=== PATIENT | female | born 1940 | race Caucasian/White ===

== ENCOUNTER 2019-03-01 17:55 | Observation (INO) ==
[2019-03-01] MEDS ORDERED: NS 1,000 ML IV ONE (18:39)
--- NOTE | 2019-03-01 18:42 | PROVIDER DOCUMENTATION ---
HPI-Cardiac General - General Chief Complaint: Fall Stated Complaint: FALL Time Seen by Provider: 03/01/19 18:15 Source: patient Allergies/Adverse Reactions: Patient Allergies Allergy/AdvReac Type Severity Reaction Status Date / Time morphine AdvReac Intermediate AGITATED Verified 05/21/18 16:00 codeine [Codeine] AdvReac Mild NAUSEA Verified 05/21/18 16:00 Home Medications: Home Medication List Medication Instructions Recorded Confirmed Last Taken Type Cyanocobalamin/FA/Pyridoxine 1 each PO DAILY 01/24/13 03/01/19 03/01/19 History [Folic Acid 2.5 mg Tablet] Levothyroxine [Synthroid] 50 mcg PO QAM #30 tablet 04/30/13 03/01/19 05/21/18 Rx Valproic Acid 250 mg PO TID 02/19/15 03/01/19 03/01/19 History Glipizide 5 mg PO BID 05/21/18 03/01/19 03/01/19 History Duloxetine HCl 60 mg PO DAILY 03/01/19 03/01/19 03/01/19 History Fluticasone 50 Mcg Nasal [place] 1 spray INTRANASAL DAILY PRN 03/01/19 03/01/19 Unknown History [Flonase] Folic Acid 1 mg PO DAILY 03/01/19 03/01/19 03/01/19 History Hydrocodone/Acetaminophen 1 ea PO BID PRN PRN 03/01/19 03/01/19 03/01/19 History [Hydrocodone-Acetamin 7.5-325] Omeprazole 40 mg PO DAILY 03/01/19 03/01/19 03/01/19 History - History of Present Illness-Cardiac Nature of Presenting Problem: 78 yr old F, hx of epilepsy, HTN, presents after unwitnessed fall. The pt states that she was cleaning out her den earlier today, when she lost her balance and fell. She denies, LOC, denies any seizure like activity, she only notes that her balance went off, and she fell over, hitting her head on an unknown object. Other than pain from the head injury, she denies any chest pain. When the pt was transported by EMS, atrial fibrillation was noted on the monitor; subsequent EKG reverted back to sinus rhythm. She was asymptomatic at the moment of the atrial fibrillation occurring. She does report a hx of falls, where she feels like she loses balance and falls, without dizziness, without any pain, only noting a flutter in heart sometimes. Quality of Pain: reports: none Context/Activities at Onset: reports: moderate activity Review of Systems - Adult - REVIEW OF SYSTEMS - ADULT Constitutional: reports: no symptoms reported Eyes: reports: no symptoms reported Ears, Nose, Mouth & Throat: reports: no symptoms reported Cardiovascular: reports: no symptoms reported Respiratory: reports: no symptoms reported Gastrointestinal: reports: no symptoms reported Genitourinary: reports: no symptoms reported Musculoskeletal: reports: joint pain (hx of arthritis) Integumentary: reports: no symptoms reported Neurological: reports: no symptoms reported Past History - Adult - PAST MEDICAL HISTORY-ADULT Review of Records: reports: Nursing Assessment Review Major Childhood Illnesses: reports: denies history Cardiovascular: reports: denies history Respiratory: reports: denies history Gastrointestinal: reports: diverticulosis, other (colostomy) Obstetrical/Gynecological: reports: denies history Genitourinary: reports: denies history Musculoskeletal: reports: arthritis (RA), chronic pain Neurological: reports: denies history, Seizures/Epilepsy Psychiatric: reports: denies history Endocrine/Immune: reports: denies history, Diabetes, thyroid disorder Other Conditions: reports: denies history - PRIOR SURGERIES/PROCEDURES Surgical/Procedure History: reports: appendectomy, cholecystectomy, hysterectomy , bowel surgery (perforated colon), joint replacement, other (illeostomy) - IMMUNIZATION STATUS Childhood Immunizations: See Nurse Assessment Flu Vaccine: See Nurse Assessment - FAMILY HISTORY Family History: diabetes, HTN Physical Exam-General - PHYSICAL EXAM-ADULT Initial Vital Signs Reviewed: Yes - CONSTITUTIONAL General Appearance: alert, no apparent distress - EYES Eyes: PERRL/EOMI - HEAD, EARS, NOSE, MOUTH & THROAT HENMT: other (scalp hematoma, hemostatic, superficial laceration) - RESPIRATORY Respiratory: lungs clear, normal breath sounds - CARDIOVASCULAR Cardiovascular: regular rate, rhythm - GASTROINTESTINAL (ABDOMEN) Abdominal Exam: normal bowel sounds, non tender, soft - SKIN Integumentary: warm/dry - PSYCHIATRIC Psych/Mental Status: normal mood/affect, oriented x 3 - HEART Score HEART Score: History: Slightly Suspicious HEART Score: ECG: Normal HEART Score: Age: > or = 65 Years HEART Score: Risk Factors for Atherosclerotic Disease: 1 or 2 Risk Factors HEART Score: Troponin: < or = Normal Limit Total HEART Score:: 3 Progress - PLAN OF CARE/RESULTS Progress/Plan/Lab Results: Vital Signs - 8 hr 03/01/19 18:20 03/01/19 19:37 03/01/19 20:03 Temperature 97.7 F Pulse Rate 91 H 88 92 H Respiratory Rate 20 17 19 Blood Pressure 126/81 128/86 108/86 O2 Sat by Pulse Oximetry 96 92 L 94 L 03/01/19 20:33 03/01/19 20:41 03/01/19 21:08 Temperature Pulse Rate 88 Respiratory Rate 23 Blood Pressure 116/70 116/70 133/72 O2 Sat by Pulse Oximetry 98 03/01/19 21:34 03/01/19 22:04 03/01/19 22:33 Temperature Pulse Rate 83 85 76 Respiratory Rate 17 20 17 Blood Pressure 110/59 117/67 122/78 O2 Sat by Pulse Oximetry 95 96 03/01/19 23:03 Temperature Pulse Rate 81 Respiratory Rate 24 Blood Pressure 110/61 O2 Sat by Pulse Oximetry 96 Laboratory Results - last 24 hr 03/01/19 03/01/19 03/01/19 18:27 18:27 18:27 WBC 6.97 RBC 4.41 Hgb 14.4 Hct 43.5 MCV 98.6 MCH 32.7 H MCHC 33.1 RDW Std Deviation 12.6 Plt Count 225 MPV 10.8 H Immature Gran % (Auto) 0.0 Neut % (Auto) 45.3 Lymph % (Auto) 41.0 [place] % (Auto) 12.3 H Eos % (Auto) 1.1 Baso % (Auto) 0.3 Immature Gran # (Auto) 0.00 Neut # (Auto) 3.15 Lymph # (Auto) 2.86 [place] # (Auto) 0.86 H Eos # (Auto) 0.08 Baso # (Auto) 0.02 PT 13.6 INR 1.03 PTT (Actin FS) 27.9 Sodium 134 L Potassium 5.6 H Chloride 101 Carbon Dioxide 19 L Anion Gap 14 BUN 31 H Creatinine 1.1 H Estimated GFR/1.73 m2 48 BUN/Creatinine Ratio 28 Glucose 101 Calculated Osmolality 275 Calcium 9.9 Total Bilirubin 0.45 AST 16 ALT 18 Alkaline Phosphatase 48 Troponin T Total Protein 7.5 Albumin 4.8 Globulin 2.7 Albumin/Globulin Ratio 1.8 Urine Source Urine Color Urine Turbidity Urine pH Ur Specific [place] Urine Protein Ur Glucose (Stick) Ur Ketones (Stick) Urine Blood Urine Nitrite Urine Bilirubin Urobilinogen Dipstick Urine Leukocytes Urine WBC (Auto) Urine RBC (Auto) U Epithel Cells (Auto) Urine Bacteria (Auto) 03/01/19 03/01/19 18:27 19:38 WBC RBC Hgb Hct MCV MCH MCHC RDW Std Deviation Plt Count MPV Immature Gran % (Auto) Neut % (Auto) Lymph % (Auto) [place] % (Auto) Eos % (Auto) Baso % (Auto) Immature Gran # (Auto) Neut # (Auto) Lymph # (Auto) [place] # (Auto) Eos # (Auto) Baso # (Auto) PT INR PTT (Actin FS) Sodium Potassium Chloride Carbon Dioxide Anion Gap BUN Creatinine Estimated GFR/1.73 m2 BUN/Creatinine Ratio Glucose Calculated Osmolality Calcium Total Bilirubin AST ALT Alkaline Phosphatase Troponin T < 0.010 Total Protein Albumin Globulin Albumin/Globulin Ratio Urine Source CLEAN CATCH Urine Color YELLOW Urine Turbidity HAZY Urine pH 5.5 Ur Specific [place] 1.022 Urine Protein 30 A Ur Glucose (Stick) NEGATIVE Ur Ketones (Stick) TRACE A Urine Blood SMALL A Urine Nitrite NEGATIVE Urine Bilirubin NEGATIVE Urobilinogen Dipstick NORMAL Urine Leukocytes LARGE A Urine WBC (Auto) TNTC A Urine RBC (Auto) 10-20 A U Epithel Cells (Auto) <10 Urine Bacteria (Auto) NEGATIVE Orders Category Date Time Status Admit - [facility] Routine AdmDCTranf 03/01/19 22:47 Active Activity - Up with Assistance ORDERED Care 03/01/19 22:47 Active Apply Mechanical Device [QM] ORDERED Care 03/01/19 22:47 Active FSBS/Accucheck Result AC + HS Care 03/01/19 22:47 Active Intake and Output-Strict ORDERED Care 03/01/19 22:47 Active Misc. NRSG Communication Order DIRECTED Care 03/01/19 21:43 Active Update & Confirm Home Medicati ROUTINE Care 03/01/19 22:27 Active Vital Signs Order Q 8-HR ASSESS Care 03/01/19 22:47 Active Z-Document. for Tele Applied ORDERED Care 03/01/19 22:47 Active Regular Diet Diet 03/01/19 22:[address] HEAD W/O CONTRAST [CT] Stat Exams 03/01/19 18:39 Completed BASIC METABOLIC PANEL [CHEM] Routine Lab 03/02/19 06:00 Ordered CBC WITH DIFF [HEME] Routine Lab 03/02/19 06:00 Ordered CBC WITH ELECTRONIC DIFF [HEME] Stat Lab 03/01/19 18:27 Completed COMPREHENSIVE METABOLIC PANEL [CHEM] Stat Lab 03/01/19 18:27 Completed MAGNESIUM [CHEM] Routine Lab 03/02/19 06:00 Ordered PROTIME WITH INR [COAG] Stat Lab 03/01/19 18:27 Completed PTT [COAG] Stat Lab 03/01/19 18:27 Completed TROPONIN T Stat Lab 03/01/19 18:27 Completed TSH Routine Lab 03/02/19 06:00 Ordered URINALYSIS W/POSS RFLX CULT [URINALYSIS] Stat Lab 03/01/19 19:38 Completed URINE CULTURE [RM] Routine Lab 03/01/19 20:06 Received 0.9% Sodium Chloride Inj [Ns] 1,000 ml Med 03/01/19 22:47 Active IV 60 mls/hr 0.9% Sodium Chloride Inj [Ns] 1,000 ml Med 03/01/19 18:39 Discontinued IV 999 mls/hr CefTRIAXONE [Rocephin] 1 gm Med 03/01/19 22:47 Active 0.9% Sodium Chloride Inj [Ns] 50 ml IV Q24H Insulin Lispro [Humalog] Med 03/02/19 07:00 Active See Protocol SUBQ 0700,1100,1600,2100 Ondansetron [Zofran] Med 03/01/19 22:47 Active 4 mg IV Q4H PRN PRN Promethazine [Phenergan] Med 03/01/19 22:47 Active 25 mg PO Q6H PRN PRN Sodium Polystyrene [Kayexalate] Med 03/01/19 20:24 Discontinued 15 gm PO NOW ONE Valproic Acid [Depakene Liquid] Med 03/01/19 21:34 Discontinued 250 mg PO NOW ONE Telemetry [OM.EQ] Routine Oth 03/01/19 22:47 Active EKG [EKG] Routine Ther 03/02/19 08:00 Ordered Echo Spec/Color Doppler Routine Ther 03/02/19 08:00 Ordered Physical Therapy Eval/Treatment [OM.PT] Routine Ther 03/01/19 22:47 Active Transfer/Admit Order [TRANSFER] Routine Transfer 03/01/19 22:28 Completed Pt has had some runs of tachycardia, but no noted atrial fibrillation on the monitor; remains asymptomatic. Spoke with hospitalist for admission. Result Diagrams: 03/01/19 18:27 03/01/19 18:27 - EKG 1 Time of EKG reading by physician:: 18:14 EKG Read and Signed by:: Jairo Anna EKG Interpretation (*Must complete 3 of following elements*): Abnormal Rate: 94 Rhythm: sinus QRS: LVH VT Interval: normal ST Wave: normal - CT/MRI 1 CT Study: Head Impression: See EMR Report CT Results: chronic changes - CONSULTS/PCP/HOSPITALIST Notification #1 *Consult/PCP/Hospitalist*: Dr. Garcia Time Discussed: 20:30 Consult Disposition: Admit Departure - Departure Date of Disposition Decision: 03/01/19 Time of Disposition Decision: 22:12 DIAGNOSIS: Fall Disposition: ADMITTED INPATIENT 09 Certified Medical Emergency: Emergent Condition: Stable - Critical Care Note This patient required my direct & personal management of CC.: No Attestation - Physician/ SHAGGY Attestation Patient care was provided by Advanced Practice Provider:: No The physician spent face to face time with patient:: Yes Advanced Practice Provider documentation review:: Supervising physician onsite and consulted in the evaluation and care of this patient. The physician did have a face to face encounter with the patient.
[2019-03-01 19:22] LABS: BASO# 0.02 X1000 (0.0-0.2); BASO% 0.3 % (0.0-0.8); EOS# 0.08 X1000 (0.0-0.7); EOS% 1.1 % (0.0-10.0); HEMATOCRIT 43.5 % (37.0-47.0); HEMOGLOBIN 14.4 g/dL (12.0-16.0); LYMPH# 2.86 X1000 (1.2-3.4); MCH 32.7 PG (27-31); MCHC 33.1 g/dL (33-37); MCV 98.6 FL (81-99); MONO# 0.86 X1000 (0.11-0.59); MONO% 12.3 % (1.7-9.3); MPV 10.8 FL (7.4-10.4); NEUT# 3.15 X1000 (1.4-6.5); NEUT% 45.3 % (42.2-75.2); PLT 225 X1000 (130-400); RBC 4.41 XMIL (4.2-5.4); RDW 12.6 % (11.5-14.5); WBC 6.97 X1000 (4.8-10.8)
[2019-03-01 19:29] LABS: INR 1.03; PROTIME 13.6 Seconds (11.0-16.0)
[2019-03-01 19:30] LABS: PTT 27.9 Seconds (22.3-41.8)
[2019-03-01 19:45] LABS: URINE SOURCE CLEAN CATCH
[2019-03-01 19:48] LABS: BILIRUBIN URINE NEGATIVE (NEGATIVE); BLOOD URINE SMALL (NEGATIVE); COLOR YELLOW; GLUCOSE URINE NEGATIVE (NEGATIVE); KETONE URINE TRACE mg/dL (NEGATIVE); LEUKOCYTES URINE LARGE (NEGATIVE); NITRITE URINE NEGATIVE (NEGATIVE); PH URINE 5.5; PROTEIN URINE 30 mg/dL (NEGATIVE); SP GRAVITY URINE 1.022; TURBIDITY URINE HAZY (CLEAR); UR EPITHELIAL CELLS <10 /HPF (<10); URINE BACTERIA NEGATIVE /HPF; URINE WBC TNTC /HPF (<10); UROBILINOGEN URINE NORMAL (NORMAL)
[2019-03-01 19:53] LABS: ALB/GLOB RATIO 1.8; ALBUMIN 4.8 g/dL (3.5-5.0); CALCIUM 9.9 mg/dL (8.8-10.2); CREATININE 1.1 mg/dL (0.5-0.9); POTASSIUM 5.6 mmol/L (3.5-5.1); TOTAL BILIRUBIN 0.45 mg/dL (0.20-1.00); TOTAL PROTEIN 7.5 g/dL (6.3-8.3)
[2019-03-01] MEDS ORDERED: KAYEXALATE PO ONE (20:24)
--- NOTE | 2019-03-01 21:22 | Diag Imaging Result Doc PS360 ---
EXAM: CT HEAD W/O CONTRAST INDICATION: fall TECHNIQUE: This exam was performed using automated exposure control, adjustment of mA or kV according to patient size, and/or use of iterative reconstruction technique. COMPARISON: 05/21/2017 FINDINGS: There is stable ventriculomegaly. No periventricular edema is appreciated. There is no definite acute infarct given the limited sensitivity of CT versus MRI. There is no discrete intracranial mass, mass effect, or intracranial hemorrhage. There is a subgaleal scalp hematoma and laceration posteriorly mainly to the right of midline toward the vertex of the skull. The calvaria is intact. IMPRESSION: 1.Stable chronic ventriculomegaly but no evidence of acute intracranial pathology. 2.Scalp hematoma as described. Electronically signed by Manuel Baca 03/01/2019 9:19 PM
[2019-03-01] MEDS ORDERED: DEPAKENE LIQUID PO ONE (21:34)
[2019-03-01] MEDS ORDERED: PHENERGAN PO PRN (22:47)
[2019-03-01] MEDS ORDERED: ROCEPHIN 1 GM in NS 50 ML IV SCH (22:47)
[2019-03-01] MEDS ORDERED: NS 1,000 ML IV SCH (22:47)
[2019-03-01] MEDS ORDERED: ZOFRAN IV PRN (22:47)
[2019-03-02] MEDS ORDERED: NORCO-7.5 PO PRN (01:19)
[2019-03-02 06:25] LABS: BASO# 0.02 X1000 (0.0-0.2); BASO% 0.3 % (0.0-0.8); EOS# 0.09 X1000 (0.0-0.7); EOS% 1.4 % (0.0-10.0); HEMATOCRIT 39.8 % (37.0-47.0); HEMOGLOBIN 13.1 g/dL (12.0-16.0); LYMPH# 2.42 X1000 (1.2-3.4); LYMPH% 37.6 % (20.5-51.1); MCH 32.4 PG (27-31); MCHC 32.9 g/dL (33-37); MCV 98.5 FL (81-99); MONO# 0.74 X1000 (0.11-0.59); MONO% 11.5 % (1.7-9.3); MPV 10.3 FL (7.4-10.4); NEUT# 3.16 X1000 (1.4-6.5); NEUT% 49.2 % (42.2-75.2); PLT 214 X1000 (130-400); RBC 4.04 XMIL (4.2-5.4); RDW 12.5 % (11.5-14.5); WBC 6.43 X1000 (4.8-10.8)
[2019-03-02] MEDS ORDERED: SYNTHROID PO SCH (07:00)
[2019-03-02 07:02] LABS: AGAP 10; BUN 25 mg/dL (8-22); CALCIUM 8.4 mg/dL (8.8-10.2); CHLORIDE 106 mmol/L (98-107); COSMO 276; CREATININE 0.8 mg/dL (0.5-0.9); ESTIMATED GFR > 60; GLUCOSE 93 mg/dL (70-104); MAGNESIUM 1.9 mg/dL (1.5-2.7); POTASSIUM 4.6 mmol/L (3.5-5.1); SODIUM 136 mmol/L (136-145); TCO2 20 mmol/L (25-35)
[2019-03-02] MEDS: HUMALOG SUBQ SCH ×2 (07:34→11:41)
--- NOTE | 2019-03-02 08:00 | HISTORY AND PHYSICAL ---
CHIEF COMPLAINT: Fall. HISTORY OF PRESENT ILLNESS: Ms. Ramey is a 78-year-old female with a past medical history of epilepsy, hypertension, intraabdominal abscess with colon resection and colostomy as well as hypothyroidism and seizure disorder. She comes in after having a fall at home. The fall was unwitnessed. The patient states she was clearing out her den earlier today. She lost her balance. Denies loss of consciousness or any type of seizure activity. She did hit her head on a known object and has a scalp hematoma with a superficial laceration. Apparently in the ambulance when they hooked her up, they thought they say an atrial flutter. She had some runs of tachycardia, but there was no atrial fibrillation in the emergency room. She will be admitted for observation overnight. PAST MEDICAL HISTORY: See HPI. PAST SURGICAL HISTORY: 1. Cholecystectomy. 2. Appendectomy. 3. Hysterectomy. 4. Bilateral knee replacement. 5. Back surgery. 6. Breast surgery. 7. Colon resection with ostomy placement. SOCIAL HISTORY: Lives with family. No tobacco, alcohol or illicit drugs. FAMILY HISTORY: Denies any early cardia . Otherwise reviewed and not pertinent to this admission. HOME MEDICATIONS: Folic acid 1 mg tablet 1 p.o. daily, Flonase daily, glipizide 5 mg p.o. b.i.d., duloxetine 60 mg daily, [place] 7.5 one p.o. b.i.d., levothyroxine 50 mcg p.o. daily, omeprazole 40 mg p.o. daily, valproic acid 250 mg p.o. t.i.d. REVIEW OF SYSTEMS: A 14-point review of systems was conducted with the patient, and pertinent positives are listed above in the HPI. All other systems reviewed and found to be negative. PHYSICAL EXAMINATION: VITAL SIGNS: Temperature 97.7, pulse 91, respirations 20, blood pressure 146/81, oxygen saturation 96% on room air. GENERAL: A pleasant 78-year-old female lying on the ER stretcher, alert and oriented x3, answers all questions appropriately, is in no acute distress. HEENT: Head is normocephalic. Hematoma noted to scalp with superficial laceration. Pupils are equal, round and reactive to light. Extraocular eye movements intact. Sclerae anicteric. Conjunctivae are pink. Oral mucosa is moist. NECK: Supple. No JVD. No thyromegaly. Trachea is midline. No cervical lymphadenopathy. CARDIAC: S1 and S2 appreciated. Mildly tachycardic. No murmurs, gallops or rubs. LUNGS: Clear to auscultation bilaterally. No rhonchi, wheezes or rales. Symmetric rise and fall with respirations. ABDOMEN: Soft, nondistended and nontender. Bowel sounds present in all 4 quadrants and normoactive. No pulsatile mass. No organomegaly. EXTREMITIES: No cyanosis, clubbing or edema. NEUROLOGICAL: Alert and oriented x3. Cranial nerves II through XII grossly intact. DIAGNOSTIC DATA: WBC is 6.97, hemoglobin 14.4, hematocrit 43.5, platelet count 225. INR is 1.03. Sodium is 134, potassium 5.6, chloride 101, carbon dioxide 19, BUN is 31, creatinine 1.1, glucose 101. Valproic acid is 80. Urine is leukocyte esterase positive with too numerous to count WBCs. ASSESSMENT: 1. Urinary tract infection. 2. Falls. 3. Hypochloremia. 4. Chronic renal insufficiency. 5. Hypothyroidism. PLAN: Place the patient in the hospital on observation status. Rocephin 1 g q.24 hours for urinary tract infection. Check a TSH level. Continue Synthroid. Her valproic acid level is within normal limits. Continue valproic acid for her chronic epilepsy. The patient was given her Kayexalate. We will recheck potassium level. Further recommendations based on the patient's clinical course. Dictated by CARLITO Martinez for Martin Garcia MD I have performed a face to face diagnostic evaluation. Labs/ Xrays- reviewed. Exam- Chest- clear, CV- regular, A/P- UTI, Falls- Admit, Chest urine culture,IV ABX. Fall precautions. Dr. Garcia cc: CARLITO Martinez MD [facility]
[2019-03-02 08:15] LABS: HEMOGLOBIN A1C 5.7 % (4.8-6.0)
--- NOTE | 2019-03-02 08:46 | EKG Report ---
Test Performed on : 03/02/2019 06:10:44 AM Test Reason : chest pain Blood Pressure : / mmHG Vent. Rate : 069 BPM Atrial Rate : 069 BPM P-R Int : 158 ms QRS Dur : 070 ms QT Int : 364 ms P-R-T Axes : 000 -19 027 degrees QTc Int : 390 ms Normal sinus rhythm. Minimal voltage criteria for LVH, may be normal variant Borderline ECG When compared with ECG of 01-MAR-2019 18:13, (Unconfirmed) No significant change was found Confirmed by Gaston CHAMPAGNE, Moustapha Spear ([id number]) on 03/02/2019 9:42:49 PM
[2019-03-02] MEDS ORDERED: FOLIC ACID PO SCH (09:00)
[2019-03-02] MEDS ORDERED: CYMBALTA PO SCH (09:00)
[2019-03-02] MEDS ORDERED: DEPAKENE LIQUID PO SCH (09:00)
[2019-03-02] MEDS ORDERED: PRILOSEC PO SCH (09:00)
[2019-03-02 11:50] VITALS: BP 102/61
[2019-03-02] MEDS ORDERED: FLU VACCINE IM ONE (11:53)
[2019-03-02] MEDS ORDERED: PNEUMOVAX 23 IM ONE (11:53)
--- NOTE | 2019-03-02 16:27 | DISCHARGE SUMMARY ---
ADMISSION DATE: 03/01/2019 DISCHARGE DATE: 03/02/2019 PERTINENT STUDIES: CT head with stable chronic ventriculomegaly and scalp hematoma without intracranial acute process. CBC unremarkable. Initial chemistry with sodium 134, potassium 5.6, BUN 31, creatinine 1.1. LFTs within normal limits. Troponin negative. TSH within normal limits. Repeat chemistry with potassium 4.6, BUN 25, creatinine 0.8. DISCHARGE DIAGNOSES: 1. Fall. 2. Seizure disorder. 3. Asymptomatic bacteriuria. 4. Likely acute kidney injury. 5. Hyperkalemia. 6. Hyponatremia . 7. Diabetes mellitus. 8. Hypothyroidism. 9. Likely diabetic peripheral neuropathy. HOSPITAL COURSE: Patient presented initially after fall. States she was in her bathroom and lost her balance. She did hurt her head but denied any loss of consciousness. The patient stated that she recalled the entire fall without any missing pieces to suggest a loss of consciousness. She denied dizziness, vertigo, nausea, vomiting, cough, dyspnea, dysuria. When EMS arrived she was tachycardic and EMS thought that she may have had atrial flutter. After arrival to the hospital patient was in sinus tach but no arrhythmia was found. She had a small laceration on her head which was bandaged. The patient was noted to have hyperkalemia with mildly elevated creatinine 1.1, potassium 5.6. This combined with the possible atrial flutter seen by EMS prompted admission for observation. Her urinalysis was somewhat suggestive of UTI but patient denied any urinary symptoms. She did not have any fever or white count so this was favored be asymptomatic bacteriuria. She was monitored overnight with no events on telemetry. She was given IV hydration, which improved her hyperkalemia and creatinine. But suggested the patient she try to stay hydrated. The patient was again questioned and denied anything sounds like presyncope or vertigo. Did seem to have a little bit of peripheral neuropathy on exam, possibly diabetic, which may be contributing to her occasionally being off balance but no focal neurologic deficits were identified to suggest stroke. After initial IV fluids patient's vitals were all within normal limits. She was discharged home to follow up with her PCP. She had no symptoms that sounded like seizures and her valproic acid level was within expected limit. Urine culture was no growth. DISCHARGE DIET: Diabetic. DISCHARGE MEDICATIONS: Duloxetine 60 mg p.o. daily, Flonase as needed, folic acid daily, glipizide 5 mg p.o. b.i.d., [place] as previously prescribed, omeprazole 40 mg p.o. daily, valproic acid 250 mg p.o. t.i.d., Synthroid 50 mcg p.o. daily. FOLLOWUP AND PLAN: Patient with fall with small head lac but no serious injury. No loss of consciousness. No cardiac events noted on telemetry or EKG after arrival. Patient to follow up with PCP. Discussed with patient that if she has further events that may be more suggestive of cardiac issue then may need outpatient Holter for cardiac monitoring.
--- NOTE | 2019-03-03 08:02 | EKG Report ---
Test Performed on : 03/01/2019 6:13:04 PM Test Reason : IRREGULAR HEART RATE Blood Pressure : / mmHG Vent. Rate : 094 BPM Atrial Rate : 094 BPM P-R Int : 152 ms QRS Dur : 072 ms QT Int : 324 ms P-R-T Axes : 057 -22 021 degrees QTc Int : 405 ms Normal sinus rhythm. Moderate voltage criteria for LVH, may be normal variant Borderline ECG When compared with ECG of 01-MAY-2013 16:26, fusion complexes are no longer present ST no longer depressed in Lateral leads Unconfirmed Result
== END 2019-03-02 12:37 | disposition home or self-care (01) ==
LOC: SUPCPDRO → 3N 17:55 → ED 17:55 → SUATTDRO 23:21
PROVIDERS: ATTEND Internal Medicine

== ENCOUNTER 2019-05-01 08:50 | Inpatient (IN) ==
[2019-05-01] MEDS ORDERED: VERSED INJ ONE (09:05)
[2019-05-01] MEDS ORDERED: KEPPRA 1,500 MG in NS 100 ML IV ONE (09:09)
[2019-05-01] MEDS ORDERED: VERSED ONE (09:09)
[2019-05-01] MEDS ORDERED: NS 1,000 ML IV ONE (09:09)
[2019-05-01] MEDS ORDERED: ATIVAN IV ONE ×2 (09:37→11:24)
[2019-05-01 10:11] LABS: BASO# 0.02 X1000 (0.0-0.2); BASO% 0.2 % (0.0-0.8); EOS# 0.03 X1000 (0.0-0.7); EOS% 0.4 % (0.0-10.0); HEMOGLOBIN 13.1 g/dL (12.0-16.0); IMM GRAN# 0.03 X1000 (0.0-0.04); IMM GRAN% 0.4 % (0.0-0.5); LYMPH# 3.29 X1000 (1.2-3.4); LYMPH% 39.9 % (20.5-51.1); MCH 32.8 PG (27-31); MCHC 32.8 g/dL (33-37); MCV 100.3 FL (81-99); MONO% 9.7 % (1.7-9.3); MPV 10.7 FL (7.4-10.4); NEUT# 4.07 X1000 (1.4-6.5); NEUT% 49.4 % (42.2-75.2); PLT 215 X1000 (130-400); RBC 3.99 XMIL (4.2-5.4); RDW 13.3 % (11.5-14.5); WBC 8.24 X1000 (4.8-10.8)
[2019-05-01 10:18] LABS: URINE SOURCE CATH
[2019-05-01 10:20] LABS: BILIRUBIN URINE NEGATIVE (NEGATIVE); BLOOD URINE TRACE (NEGATIVE); COLOR YELLOW; GLUCOSE URINE TRACE mg/dL (NEGATIVE); KETONE URINE TRACE mg/dL (NEGATIVE); LEUKOCYTES URINE NEGATIVE (NEGATIVE); NITRITE URINE NEGATIVE (NEGATIVE); PH URINE 5.5; PROTEIN URINE TRACE mg/dL (NEGATIVE); SP GRAVITY URINE 1.022; TURBIDITY URINE CLEAR (CLEAR); UR EPITHELIAL CELLS <10 /HPF (<10); URINE BACTERIA NEGATIVE /HPF; URINE RBC <10 /HPF (<10); URINE WBC <10 /HPF (<10); UROBILINOGEN URINE NORMAL (NORMAL)
[2019-05-01] MEDS ORDERED: HALDOL IV ONE ×3 (10:20→13:47)
[2019-05-01] MEDS ORDERED: BENADRYL IV ONE ×2 (10:20→13:40)
[2019-05-01 10:21] LABS: ALB/GLOB RATIO 1.8; ALBUMIN 4.3 g/dL (3.5-5.0); CALCIUM 9.7 mg/dL (8.8-10.2); MAGNESIUM 1.9 mg/dL (1.5-2.7); TOTAL BILIRUBIN 0.36 mg/dL (0.20-1.00); TOTAL PROTEIN 6.7 g/dL (6.3-8.3)
[2019-05-01 10:23] LABS: INR 1.03; PROTIME 13.6 Seconds (11.0-16.0)
--- NOTE | 2019-05-01 12:25 | Diag Imaging Result Doc PS360 ---
EXAM: CHEST-PORTABLE HISTORY: seizure TECHNIQUE: Single view COMPARISON: 10/11/2017 FINDINGS: Poor inspiratory effort. No cardiomegaly. Right hemidiaphragm is elevated. Pleural effusions identified. No consolidation. IMPRESSION: Negative exam Electronically signed by Walter Byrne 05/01/2019 12:23 PM
[2019-05-01 13:00] LABS: UR AMPHETAMINES QUAL NONE DETECTED (NONE DETECT); UR BARBITUATES QUAL NONE DETECTED (NONE DETECT); UR BENZODIAZEPIN QUAL PRESUMPTIVE POSITIVE (NONE DETECT); UR CANNABINOIDS QUAL NONE DETECTED (NONE DETECT); UR COCAINE QUAL NONE DETECTED (NONE DETECT); UR METHADONE QUAL NONE DETECTED (NONE DETECT); UR OPIATES QUAL NONE DETECTED (NONE DETECT); UR OXYCODONE QUAL NONE DETECTED (NONE DETECT); UR PCP QUAL NONE DETECTED (NONE DETECT)
[2019-05-01] MEDS ORDERED: DEPACON 500 MG in NS 50 ML IV ONE (13:41)
--- NOTE | 2019-05-01 15:45 | Diag Imaging Result Doc PS360 ---
EXAM: CT HEAD W/O CONTRAST INDICATION: seizure TECHNIQUE: This exam was performed using automated exposure control, adjustment of mA or kV according to patient size, and/or use of iterative reconstruction technique. COMPARISON: 03/01/2019 FINDINGS: There is stable chronic ventriculomegaly. There is no definite acute infarct given the limited sensitivity of CT versus MRI. There is no discrete intracranial mass, mass effect, or intracranial hemorrhage. The surrounding soft tissues and bony structures are essentially unremarkable. IMPRESSION: Stable chronic ventriculomegaly. No evidence of acute intracranial pathology by CT. Electronically signed by Manuel Baca 05/01/2019 3:42 PM
--- NOTE | 2019-05-01 15:53 | PROVIDER DOCUMENTATION ---
This chart was entered by Fanny Madison Scribe, acting as scribe for Sylvester Roper MD. HPI-Neurological Disorder - General Chief Complaint: Seizure Stated Complaint: SEIZURE Time Seen by Provider: 05/01/19 09:02 Source: family, EMS Allergies/Adverse Reactions: Patient Allergies Allergy/AdvReac Type Severity Reaction Status Date / Time morphine AdvReac Intermediate AGITATED Verified 05/01/19 11:36 codeine [Codeine] AdvReac Mild NAUSEA Verified 05/01/19 11:36 Home Medications: Home Medication List Medication Instructions Recorded Confirmed Last Taken Type Cyanocobalamin/FA/Pyridoxine 1 each PO DAILY 01/24/13 03/01/19 03/01/19 History [Folic Acid 2.5 mg Tablet] Levothyroxine [Synthroid] 50 mcg PO QAM #30 tablet 04/30/13 03/01/19 05/21/18 Rx Valproic Acid 250 mg PO TID 02/19/15 03/01/19 03/01/19 History Glipizide 5 mg PO BID 05/21/18 03/01/19 03/01/19 History Duloxetine HCl 60 mg PO DAILY 03/01/19 03/01/19 03/01/19 History Fluticasone 50 Mcg Nasal [place] 1 spray INTRANASAL DAILY PRN 03/01/19 03/01/19 Unknown History [Flonase] Folic Acid 1 mg PO DAILY 03/01/19 03/01/19 03/01/19 History Hydrocodone/Acetaminophen 1 ea PO BID PRN PRN 03/01/19 03/01/19 03/01/19 History [Hydrocodone-Acetamin 7.5-325] Omeprazole 40 mg PO DAILY 03/01/19 03/01/19 03/01/19 History - History of Present Illness-Neuro Nature of Presenting Problem: Patient is a 78 year old female who presents to the ED via EMS with seizure activity. Family states patient had a seizure this morning that lasted about 5 minutes. Report patient takes Depakote. Family states patient reported not feeli ng well last night and she sat in a recliner in front of a tv all night. EMS states patient had another seizure in route that lasted about 1 minute. EMS reports patient is combative postictal. Severity: reports: mild Onset/Duration: reports: this morning Timing: reports: intermittent Context: reports: seizure activity Character of Altered Mental Status: reports: seizure activity Similar Symptoms Previously?: No Recently seen or treated by another doctor?: No - Seizure First time to have a seizure?: No Witnessed seizure?: Yes How many seizure episodes?: 2 Character of Seizure: reports: generalized shaking all over Post-ictal Symptoms: reports: other (combative) Review of Systems - Adult - REVIEW OF SYSTEMS - ADULT ROS:: ROS per family Constitutional: reports: no symptoms reported Eyes: reports: no symptoms reported Ears, Nose, Mouth & Throat: reports: no symptoms reported Cardiovascular: reports: no symptoms reported Respiratory: reports: no symptoms reported Gastrointestinal: reports: no symptoms reported Genitourinary: reports: no symptoms reported Musculoskeletal: reports: no symptoms reported Integumentary: reports: no symptoms reported Neurological: reports: see HPI, seizure. denies: dizziness/vertigo, headache/migraines Psychiatric: reports: no symptoms reported Endocrine: reports: no symptoms reported Hematologic/Lymphatic: reports: no symptoms reported Allergic/Immunologic: reports: no symptoms reported All Other Systems: Reviewed and Negative Past History - Adult - PAST MEDICAL HISTORY-ADULT Review of Records: reports: Old Records Reviewed, Nursing Assessment Review, Medications Reviewed, Social history reviewed & non-contributory. Major Childhood Illnesses: reports: denies history Cardiovascular: reports: denies history Respiratory: reports: denies history Gastrointestinal: reports: diverticulosis, other (colostomy) Obstetrical/Gynecological: reports: denies history Genitourinary: reports: denies history Musculoskeletal: reports: arthritis (RA), chronic pain Neurological: reports: Seizures/Epilepsy Psychiatric: reports: anxiety Endocrine/Immune: reports: Diabetes, thyroid disorder Other Conditions: reports: denies history - PRIOR SURGERIES/PROCEDURES Surgical/Procedure History: reports: appendectomy, cholecystectomy, hysterectomy , bowel surgery (perforated colon), joint replacement, other (illeostomy) - IMMUNIZATION STATUS Childhood Immunizations: See Nurse Assessment Flu Vaccine: See Nurse Assessment - FAMILY HISTORY Family History: diabetes, HTN - SOCIAL HISTORY Smoking: cigarettes, less than 1 pack/day Provider spent 3-5 mins advising pt. on dangers of tobacco.: Discussed manners to quit use, and f/u contacts for add'l counseling. Substance Use: denies Living Situation: family Physical Exam- Neurological - Physical Exam-Neuro Initial Vital Signs Reviewed: Yes General Appearance: alert, combative, other (mumbling and occasionally answers to name). negative: obtunded HENMT: normocephalic/atraumatic. negative: angioedema Head Injury: no evidence of injury. negative: active bleeding, lacerations Respiratory: chest non-tender, increased rate. negative: respiratory distress, wheezing Cardiovascular: tachycardia. negative: regular rate, rhythm, systolic murmur Extremity: non-tender, other (3 + pitting edema to bilateral lower extremities.) . negative: deformity Neurologic: other (unable to assess per patient's condition) Integumentary: normal color, normal turgor, warm/dry. negative: pallor Progress - PLAN OF CARE/RESULTS Progress/Plan/Lab Results: Vital Signs - 8 hr 05/01/19 08:58 05/01/19 09:00 05/01/19 09:01 Temperature 97.6 F Pulse Rate 110 H 107 H 112 H Respiratory Rate 18 24 Blood Pressure 127/75 127/75 O2 Sat by Pulse Oximetry 97 68 L 96 05/01/19 09:15 05/01/19 09:30 05/01/19 09:32 Temperature Pulse Rate 106 H 144 H 100 H Respiratory Rate 22 31 H 22 Blood Pressure 90/58 O2 Sat by Pulse Oximetry 96 100 05/01/19 09:45 05/01/19 10:00 05/01/19 10:15 Temperature Pulse Rate 54 L 106 H 89 Respiratory Rate 25 H 18 18 Blood Pressure O2 Sat by Pulse Oximetry 94 L 93 L 92 L 05/01/19 10:30 05/01/19 10:34 05/01/19 10:45 Temperature Pulse Rate 105 H 113 H 117 H Respiratory Rate 20 24 23 Blood Pressure 99/78 O2 Sat by Pulse Oximetry 72 L 100 97 05/01/19 11:00 05/01/19 11:15 05/01/19 11:25 Temperature Pulse Rate 120 H Respiratory Rate 17 16 Blood Pressure 97/72 O2 Sat by Pulse Oximetry 91 L 97 95 05/01/19 11:30 05/01/19 11:34 05/01/19 11:36 Temperature Pulse Rate 112 H 114 H 121 H Respiratory Rate 22 18 Blood Pressure 82/72 141/75 O2 Sat by Pulse Oximetry 100 95 100 05/01/19 11:45 05/01/19 12:00 05/01/19 12:02 Temperature Pulse Rate 109 H 131 H 119 H Respiratory Rate 29 H 14 20 Blood Pressure 91/71 O2 Sat by Pulse Oximetry 99 91 L 92 L 05/01/19 12:15 05/01/19 12:30 Temperature Pulse Rate 119 H Respiratory Rate 15 Blood Pressure O2 Sat by Pulse Oximetry 86 L 97 Laboratory Results - last 24 hr 05/01/19 05/01/19 05/01/19 09:08 09:40 09:40 WBC 8.24 RBC 3.99 L Hgb 13.1 Hct 40.0 MCV 100.3 H MCH 32.8 H MCHC 32.8 L RDW Std Deviation 13.3 Plt Count 215 MPV 10.7 H Immature Gran % (Auto) 0.4 Neut % (Auto) 49.4 Lymph % (Auto) 39.9 [place] % (Auto) 9.7 H Eos % (Auto) 0.4 Baso % (Auto) 0.2 Immature Gran # (Auto) 0.03 Neut # (Auto) 4.07 Lymph # (Auto) 3.29 [place] # (Auto) 0.80 H Eos # (Auto) 0.03 Baso # (Auto) 0.02 PT INR PTT ([place] FS) Sodium Potassium Chloride Carbon Dioxide Anion Gap BUN Creatinine Estimated GFR/1.73 m2 BUN/Creatinine Ratio Glucose POC Glucose 144 H Calculated Osmolality Calcium Magnesium Total Bilirubin AST ALT Alkaline Phosphatase Troponin T Eha-F-Qcsexdhefgf Pept Total Protein Albumin Globulin Albumin/Globulin Ratio Plasma Lactate Urine Source Urine Color Urine Turbidity Urine pH Ur Specific [place] Urine Protein Ur Glucose (Stick) Ur Ketones (Stick) Urine Blood Urine Nitrite Urine Bilirubin Urobilinogen Dipstick Urine Leukocytes Urine WBC (Auto) Urine RBC (Auto) U Epithel Cells (Auto) Urine Bacteria (Auto) Urine Opiates Screen Ur Oxycodone Screen Ur Methadone, Qual Ur Barbiturates Screen Valproic Acid 38.60 L Ur Phencyclidine Scrn Ur Amphetamines Screen U Benzodiazepines Scrn Urine Cocaine Screen U Cannabinoids Screen Plasma/Serum Ethyl Alc 05/01/19 05/01/19 05/01/19 09:40 09:40 09:40 WBC RBC Hgb Hct MCV MCH MCHC RDW Std Deviation Plt Count MPV Immature Gran % (Auto) Neut % (Auto) Lymph % (Auto) [place] % (Auto) Eos % (Auto) Baso % (Auto) Immature Gran # (Auto) Neut # (Auto) Lymph # (Auto) [place] # (Auto) Eos # (Auto) Baso # (Auto) PT 13.6 INR 1.03 PTT ([place] FS) 25.0 Sodium 140 Potassium 5.0 Chloride 102 Carbon Dioxide 20 L Anion Gap 18 BUN 25 H Creatinine 1.0 H Estimated GFR/1.73 m2 54 BUN/Creatinine Ratio 25 Glucose 176 H POC Glucose Calculated Osmolality 288 Calcium 9.7 Magnesium 1.9 Total Bilirubin 0.36 AST 23 ALT 23 Alkaline Phosphatase 46 Troponin T < 0.010 Gid-D-Npqpwpyibzh Pept Total Protein 6.7 Albumin 4.3 Globulin 2.4 Albumin/Globulin Ratio 1.8 Plasma Lactate Urine Source Urine Color Urine Turbidity Urine pH Ur Specific [place] Urine Protein Ur Glucose (Stick) Ur Ketones (Stick) Urine Blood Urine Nitrite Urine Bilirubin Urobilinogen Dipstick Urine Leukocytes Urine WBC (Auto) Urine RBC (Auto) U Epithel Cells (Auto) Urine Bacteria (Auto) Urine Opiates Screen Ur Oxycodone Screen Ur Methadone, Qual Ur Barbiturates Screen Valproic Acid Ur Phencyclidine Scrn Ur Amphetamines Screen U Benzodiazepines Scrn Urine Cocaine Screen U Cannabinoids Screen Plasma/Serum Ethyl Alc 05/01/19 05/01/19 05/01/19 09:40 09:40 10:00 WBC RBC Hgb Hct MCV MCH MCHC RDW Std Deviation Plt Count MPV Immature Gran % (Auto) Neut % (Auto) Lymph % (Auto) [place] % (Auto) Eos % (Auto) Baso % (Auto) Immature Gran # (Auto) Neut # (Auto) Lymph # (Auto) [place] # (Auto) Eos # (Auto) Baso # (Auto) PT INR PTT ([place] FS) Sodium Potassium Chloride Carbon Dioxide Anion Gap BUN Creatinine Estimated GFR/1.73 m2 BUN/Creatinine Ratio Glucose POC Glucose Calculated Osmolality Calcium Magnesium Total Bilirubin AST ALT Alkaline Phosphatase Troponin T Glx-N-Acpvwrybuym Pept 548 H Total Protein Albumin Globulin Albumin/Globulin Ratio Plasma Lactate Urine Source CATH Urine Color YELLOW Urine Turbidity CLEAR Urine pH 5.5 Ur Specific [place] 1.022 Urine Protein TRACE A Ur Glucose (Stick) TRACE Ur Ketones (Stick) TRACE A Urine Blood TRACE A Urine Nitrite NEGATIVE Urine Bilirubin NEGATIVE Urobilinogen Dipstick NORMAL Urine Leukocytes NEGATIVE Urine WBC (Auto) <10 Urine RBC (Auto) <10 U Epithel Cells (Auto) <10 Urine Bacteria (Auto) NEGATIVE Urine Opiates Screen Ur Oxycodone Screen Ur Methadone, Qual Ur Barbiturates Screen Valproic Acid Ur Phencyclidine Scrn Ur Amphetamines Screen U Benzodiazepines Scrn Urine Cocaine Screen U Cannabinoids Screen Plasma/Serum Ethyl Alc 05/01/19 05/01/19 10:00 11:10 WBC RBC Hgb Hct MCV MCH MCHC RDW Std Deviation Plt Count MPV Immature Gran % (Auto) Neut % (Auto) Lymph % (Auto) [place] % (Auto) Eos % (Auto) Baso % (Auto) Immature Gran # (Auto) Neut # (Auto) Lymph # (Auto) [place] # (Auto) Eos # (Auto) Baso # (Auto) PT INR PTT ([place] FS) Sodium Potassium Chloride Carbon Dioxide Anion Gap BUN Creatinine Estimated GFR/1.73 m2 BUN/Creatinine Ratio Glucose POC Glucose Calculated Osmolality Calcium Magnesium Total Bilirubin AST ALT Alkaline Phosphatase Troponin T Kus-U-Xajkzizssbe Pept Total Protein Albumin Globulin Albumin/Globulin Ratio Plasma Lactate 5.6 H* Urine Source Urine Color Urine Turbidity Urine pH Ur Specific [place] Urine Protein Ur Glucose (Stick) Ur Ketones (Stick) Urine Blood Urine Nitrite Urine Bilirubin Urobilinogen Dipstick Urine Leukocytes Urine WBC (Auto) Urine RBC (Auto) U Epithel Cells (Auto) Urine Bacteria (Auto) Urine Opiates Screen NONE DETECTED Ur Oxycodone Screen NONE DETECTED Ur Methadone, Qual NONE DETECTED Ur Barbiturates Screen NONE DETECTED Valproic Acid Ur Phencyclidine Scrn NONE DETECTED Ur Amphetamines Screen NONE DETECTED U Benzodiazepines Scrn PRESUMPTIVE POSITIVE A Urine Cocaine Screen NONE DETECTED U Cannabinoids Screen NONE DETECTED Plasma/Serum Ethyl Alc Orders Category Date Time Status Cardiac Monitoring DIRECTED Care 05/01/19 09:06 Active Finger Stick Blood Sugar (ED) DIRECTED Care 05/01/19 09:06 Active [place] Insertion ORDERED Care 05/01/19 09:08 Active Oxygen Therapy- ED Nursing DIRECTED Care 05/01/19 09:06 Active Restraint Initiate NonViolent ONCE Care 05/01/19 09:36 Active Saline Loc NOW Care 05/01/19 09:06 Active CHEST-PORTABLE [RAD] Stat Exams 05/01/19 09:[address] HEAD W/O CONTRAST [CT] Stat Exams 05/01/19 09:06 Completed ALCOHOL BLOOD Stat Lab 05/01/19 09:40 Completed BLOOD CULTURE [BLDCUL] Stat Lab 05/01/19 09:40 Ordered CBC WITH ELECTRONIC DIFF [HEME] Stat Lab 05/01/19 09:40 Completed COMPREHENSIVE METABOLIC PANEL [CHEM] Stat Lab 05/01/19 09:40 Completed LACTATE, PLASMA [CHEM] Stat Lab 05/01/19 11:10 Completed MAGNESIUM [CHEM] Stat Lab 05/01/19 09:40 Completed PRO B-NATRIURETIC PEPTIDE Stat Lab 05/01/19 09:40 Completed PROTIME WITH INR [COAG] Stat Lab 05/01/19 09:40 Completed PTT [COAG] Stat Lab 05/01/19 09:40 Completed TROPONIN T Stat Lab 05/01/19 09:40 Completed URINALYSIS W/POSS RFLX CULT [URINALYSIS] Stat Lab 05/01/19 10:00 Completed URINE DRUG SCREEN Stat Lab 05/01/19 10:00 Completed VALPROIC ACID [TDM] Stat Lab 05/01/19 09:40 Completed 0.9% Sodium Chloride Inj [Ns] 1,000 ml Med 05/01/19 09:09 Discontinued IV 999 mls/hr Diphenhydramine [Benadryl] Med 05/01/19 10:20 Discontinued 25 mg IV NOW ONE Diphenhydramine [Benadryl] Med 05/01/19 13:40 Discontinued 25 mg IV NOW ONE Haloperidol Lactate [Haldol] Med 05/01/19 10:20 Discontinued 2 mg IV NOW ONE Haloperidol Lactate [Haldol] Med 05/01/19 13:47 Discontinued 5 mg IV NOW ONE Haloperidol Lactate [Haldol] Med 05/01/19 13:40 Discontinued 50 mg IV NOW ONE Levetiracetam [Keppra] 1,500 mg Med 05/01/19 09:09 Discontinued 0.9% Sodium Chloride Inj [Ns] 100 ml IV NOW Lorazepam [Ativan] Med 05/01/19 09:37 Discontinued 1 mg IV NOW ONE Lorazepam [Ativan] Med 05/01/19 11:24 Discontinued 2 mg IV NOW ONE Midazolam [Versed] Med 05/01/19 09:09 Discontinued 5 mg .ROUTE .STK-MED ONE Midazolam [Versed] Med 05/01/19 09:05 Discontinued 5 mg INJ NOW ONE Valproate Sodium [Depacon] 500 mg Med 05/01/19 13:41 Discontinued 0.9% Sodium Chloride Inj [Ns] 50 ml IV NOW EKG [EKG] Stat Ther 05/01/19 09:06 Ordered Result Diagrams: 05/01/19 09:40 05/01/19 09:40 - REASSESSMENT Reassessment #1 Time Reassessed: 13:10 Status: other (patient's son states patient is normally combative after having a seizure for 1 to 2 days. son also reports patient sometimes has to be admitted after seizure.) - XRAY 1 XRAY Study: Chest Impression: See EMR Report ( EXAM: CHEST-PORTABLE HISTORY: seizure TECHNIQUE: Single view COMPARISON: 10/11/2017 FINDINGS: Poor inspiratory effort. No cardiomegaly. Right hemidiaphragm is elevated. Pleural effusions identified. No consolidation. IMPRESSION: Negative exam Electronically signed by Walter Byrne 05/01/2019 12:23 PM 05/01/19 1223 Interpreting Physician: Walter Byrne MD Dictated Date/Time: 05/01/19 1222 cc: Sylvester Roper MD; Babak Gilbert MD) - CONSULTS/PCP/HOSPITALIST Notification #1 *Consult/PCP/Hospitalist*: Ofelia/Antonia Time Discussed: 15:49 Consult Disposition: Will see in ED, Admit Departure - Departure Date of Disposition Decision: 05/01/19 Time of Disposition Decision: 15:49 DIAGNOSIS: Generalized tonic-clonic seizure, Post-ictal confusion Altered mental status, unspecified Qualifiers: Altered mental status type: delirium Qualified Code(s): R41.0 - Disorientation, unspecified Disposition: ADMITTED INPATIENT 09 Certified Medical Emergency: Emergent Condition: Serious Referrals and Follow-Ups: Babak Gilbert MD [Primary Care Provider] - - Critical Care Note This patient required my direct & personal management of CC.: Yes Total Time (mins): 45 (multiple meds for seizures and post-ictal period to obtain labs/CT/etc, mult visits to bedisde to discuss with family. Patient also required soft restraints to protect self and staff) Critical Care Statement: This patient required my direct personal management to treat or rule out processes, the absence of which, could potentiallly result in sudden, clinically significant life or limb threatening deterioration. Attestation - Physician/ SHAGGY Attestation Patient care was provided by Advanced Practice Provider:: No The physician spent face to face time with patient:: Yes Advanced Practice Provider documentation review:: Supervising physician onsite and consulted in the evaluation and care of this patient. The physician did have a face to face encounter with the patient. This chart was documented by the indicated scribe, (Fanny Madison Scribe) and accurately reflects the services I performed and decisions made by me, Sylvester Roper MD, as attested by the provider's signature.
[2019-05-01] MEDS ORDERED: ZOFRAN IV PRN (19:51)
[2019-05-01] MEDS ORDERED: BLISTEX MEDICATED BERRY LIP BALM TOP PRN (21:05)
[2019-05-01] MEDS: ATIVAN IV PRN (22:04)
--- NOTE | 2019-05-01 22:22 | HISTORY AND PHYSICAL ---
PRIMARY CARE PROVIDER: Unknown. CHIEF COMPLAINT: Per ED record, seizures. HISTORY OF PRESENT ILLNESS: Ms. Ramey is a 78-year-old, female, whose past medical history was obtained from the ED records and the EMR, epilepsy, hypertension, intra-abdominal abscess with colon resection and colostomy, as well as hypothyroidism and seizure disorder. She presented to the ED via EMS with seizure activity. Family stated that she had a seizure that lasted for 5 minutes. She takes Depakote. They reported her not feeling well last night. She sit in a recliner in front of the TV. EMS stated that she had another seizure in route that lasted about a minute. She was combative and postictal with EMS, as well as arrival to the ED. She received 50 of Benadryl, 50 mg of Haldol, then 7 mg of Haldol, IV Keppra, IV Depakote, 5 of Versed, 3 of Ativan, and had to be placed in 4-point restraints before they were able to calm her. The patient is now in a postictal state and was unable to answer any questions. No family was at bedside. They were able to obtain a head CT after she was calm, that showed as stable chronic ventriculomegaly. Chest x-ray was a negative exam. Laboratory data showed a white count 8, hemoglobin and hematocrit of 13 and 40, platelet count of 215,000. Sodium of 140, potassium of 5, BUN of 25, creatinine of 1, blood glucose of 176, and a plasma lactate of 5.6. Valproic acid of 38.60. The family had told the ED physician that she has one family member who will give her Depakote as prescribed and another family member who will only give it to her once a day. She will be admitted to the ICU. We will continue with IV Depakote q.8, 250. PAST MEDICAL HISTORY: Per HPI. PAST SURGICAL HISTORY: Cholecystectomy, appendectomy, hysterectomy, bilateral knee replacement, back surgery, breast surgery, colon resection with ostomy placement. SOCIAL HISTORY: Lives with family. No tobacco, alcohol, or illicit drug use. FAMILY HISTORY: No cardiac . MEDICATIONS: Home medications are being compiled. REVIEW OF SYSTEMS: Hard to obtain secondary to the patient being postictal and sedated. PHYSICAL EXAMINATION: VITAL SIGNS: Temperature 97.6 degrees, heart rate 109, respirations 24, blood pressure 158/71, O2 is 98%. GENERAL: Ms. Ramey is a 78-year-old, female, who is currently postictal and sedated in 4-point restraints on a stretcher in the ER. HEENT: Atraumatic, normocephalic. Pupils are pinpoint. Mucous membranes appear dry. NECK: Supple. Trachea midline. CARDIOVASCULAR: S1, S2 appreciated. No murmurs, gallops, rubs noted. RESPIRATORY: Lung sounds are clear. Did not appreciate any rales, rhonchi, or wheezes. ABDOMEN: Soft, nontender, nondistended. Positive bowel sounds in 4 quadrants. EXTREMITIES: Some generalized edema to bilateral lower extremities. NEUROLOGIC: Unable to assess secondary to the patient being postictal. DIAGNOSTICS AND LABORATORY DATA: Per HPI. ASSESSMENT AND PLAN: 1. Status post seizures. Postictal now and status post sedation. We will place in 4-point restraints. The patient became very combative. Apparently, this happens to her every few years. Per family report, the patient will remain postictal about a day and a half before she starts to come around. We will watch her closely in the ICU. We will keep her on IV Depakote 250 t.i.d., IV Ativan for any breakthrough seizures. Frequent neurological checks, seizure precautions. 2. Hypertension. 3. Hypothyroidism. 4. Colon resection with colostomy. Aware. 5. Chronic renal insufficiency. 6. Elevated lactate, believed to be secondary to seizures. She does not show any signs of infectious etiology. 7. Hyperglycemia. She does not have a history of diabetes. 8. Further recommendations to follow physician evaluation, laboratory and diagnostic data. Dictated by CARLITO Almeida for Venkat Smith MD Addendum: Patient seen and examined by myself. Agree with CARLITO note. It reflects my assessment and plan. Patient is being admitted to hospital for seizures. She has history of and will check levels of valproic acid to see if she is being complain taking it. Will send her to ICU for better monitoring. cc: MD BRANDEE Iqbal
[2019-05-01] MEDS: DEPACON 250 MG in NS 50 ML IV SCH (22:57)
[2019-05-02] MEDS: ATIVAN IV PRN ×2 (00:15→02:39)
[2019-05-02] MEDS: NS 1,000 ML IV SCH ×4 (00:16→20:54)
[2019-05-02] MEDS ORDERED: STERILE WATER INJ. INJ ONE (11:06)
[2019-05-02] MEDS ORDERED: GEODON IM ONE (11:06)
[2019-05-02] MEDS ORDERED: NS 250 ML ONE (11:08)
[2019-05-02 12:04] LABS: BASO# 0.02 X1000 (0.0-0.2); BASO% 0.2 % (0.0-0.8); EOS# 0.03 X1000 (0.0-0.7); EOS% 0.3 % (0.0-10.0); HEMATOCRIT 33.9 % (37.0-47.0); HEMOGLOBIN 10.9 g/dL (12.0-16.0); LYMPH% 20.3 % (20.5-51.1); MCH 32.2 PG (27-31); MCHC 32.2 g/dL (33-37); MCV 100.3 FL (81-99); MONO% 12.6 % (1.7-9.3); MPV 9.9 FL (7.4-10.4); NEUT# 6.88 X1000 (1.4-6.5); NEUT% 66.6 % (42.2-75.2); PLT 189 X1000 (130-400); RBC 3.38 XMIL (4.2-5.4); RDW 13.2 % (11.5-14.5); WBC 10.33 X1000 (4.8-10.8)
[2019-05-02 12:09] LABS: INR 1.15; PROTIME 14.9 Seconds (11.0-16.0)
[2019-05-02] MEDS: DEPACON 250 MG in NS 50 ML IV SCH ×3 (12:17→21:49)
[2019-05-02 12:41] LABS: AGAP 10; ALB/GLOB RATIO 1.9; ALBUMIN 3.3 g/dL (3.5-5.0); ALKALINE PHOSPHATASE 35 U/L (32-104); BUN 18 mg/dL (8-22); CALCIUM 8.9 mg/dL (8.8-10.2); CHLORIDE 107 mmol/L (98-107); COSMO 289; CREATININE 0.7 mg/dL (0.5-0.9); ESTIMATED GFR > 60; GLUCOSE 102 mg/dL (70-104); GOT 48 U/L (10-30); GPT 25 U/L (10-36); MAGNESIUM 1.7 mg/dL (1.5-2.7); POTASSIUM 3.6 mmol/L (3.5-5.1); SODIUM 144 mmol/L (136-145); TCO2 27 mmol/L (25-35); TOTAL BILIRUBIN 0.44 mg/dL (0.20-1.00)
--- NOTE | 2019-05-02 16:04 | PROGRESS NOTE ---
DATE: 05/02/2019 SUBJECTIVE: Patient continues to be lethargic. Apparently she has been receiving some Ativan overnight for agitation instead of seizure. No other issues noted as per nursing staff overnight. OBJECTIVE: Vital Signs: Temperature 98.3 degrees, heart rate 84, respiratory 21, blood pressure 88/56, O2 saturation 95% on 2 L nasal cannula. General Examination: This is a chronically ill- appearing, 78-year-old female, lying in bed in no acute distress. Cardiovascular: S1, S2 heard. No murmurs, gallops, or rubs. Regular rate and rhythm. Respiratory exam: Clear bilaterally to auscultation. No work of breathing or using accessory muscles. Abdomen: Soft, nontender to palpation. Nondistended. Bowel sounds present. No organomegaly. Extremities: No clubbing, cyanosis, or edema. Peripheral pulses present in both legs. Neurological exam: The patient is postictal. Does not follow any commands. Very sleepy. LABORATORY DATA: Pending at time of my dictation. ASSESSMENT AND PLAN: 1. Postictal status. Patient had an episode of seizure. That is the reason why she has been placed in the intensive care unit. Lactate was elevated. Apparently, the patient has not been compliant with her medications considering that she is on valproic acid and the levels are low. In any case, we have restarted all medication intravenous. The patient is in the intensive care unit. No more seizures since admission. At this point, we will continue with Ativan as needed for seizures. Because the reason of the seizure is noncompliance, I do not think we will need any further workup, like magnetic resonance imaging. I do not think we will need to consult Neurology yet. We will continue to monitor this patient closely. 2. Hypertension. Blood pressure is under control. We will continue with the same management. 3. Hypothyroidism. Will restart levothyroxine once this patient is more awake. 4. Chronic kidney disease stage 1. Creatinine is 1.0. We will continue to monitor. 5. Elevated lactate. That is definitely secondary to seizures. There was no signs of any infectious pelvis. Will continue to monitor. 6. Disposition: We will continue to monitor this patient closely in the intensive care unit. Will continue with valproic acid intravenously. cc: Venkat Smith MD
[2019-05-03] MEDS: NS 1,000 ML IV SCH ×4 (03:49→22:23)
[2019-05-03] MEDS: DEPACON 250 MG in NS 50 ML IV SCH ×3 (06:00→22:29)
[2019-05-03 06:24] LABS: BASO# 0.02 X1000 (0.0-0.2); BASO% 0.2 % (0.0-0.8); EOS# 0.18 X1000 (0.0-0.7); HEMATOCRIT 32.3 % (37.0-47.0); HEMOGLOBIN 10.2 g/dL (12.0-16.0); LYMPH# 2.52 X1000 (1.2-3.4); LYMPH% 27.8 % (20.5-51.1); MCH 31.8 PG (27-31); MCHC 31.6 g/dL (33-37); MCV 100.6 FL (81-99); MONO# 0.93 X1000 (0.11-0.59); MONO% 10.3 % (1.7-9.3); MPV 10.2 FL (7.4-10.4); NEUT# 5.41 X1000 (1.4-6.5); NEUT% 59.7 % (42.2-75.2); PLT 176 X1000 (130-400); RBC 3.21 XMIL (4.2-5.4); RDW 13.2 % (11.5-14.5); WBC 9.06 X1000 (4.8-10.8)
[2019-05-03 07:14] LABS: AGAP 16; BUN 13 mg/dL (8-22); CHLORIDE 109 mmol/L (98-107); COSMO 285; CREATININE 0.7 mg/dL (0.5-0.9); ESTIMATED GFR > 60; GLUCOSE 132 mg/dL (70-104); POTASSIUM 3.1 mmol/L (3.5-5.1); SODIUM 142 mmol/L (136-145); TCO2 17 mmol/L (25-35)
[2019-05-03] MEDS ORDERED: POTASSIUM CHLORIDE 60 MEQ in NS 500 ML IV ONE (09:57)
[2019-05-03] MEDS ORDERED: MAGNESIUM SULFATE 2 GM/S.W.I. 2 GM/50 ML IVPB IV ONE (09:57)
[2019-05-03] MEDS ORDERED: CALCIUM GLUCONATE 2 GM in NS 100 ML IV ONE (09:57)
[2019-05-03] MEDS ORDERED: NORCO-7.5 PO PRN (10:57)
[2019-05-03] MEDS: PRILOSEC PO SCH (11:59)
[2019-05-03] MEDS: FOLIC ACID PO SCH (11:59)
[2019-05-03] MEDS: SYNTHROID PO SCH (12:00)
[2019-05-03] MEDS ORDERED: SODIUM PHOSPHATE 35 MMOL in NS 250 ML IV ONE (12:27)
[2019-05-03] MEDS: NEUTRA-PHOS PO SCH ×3 (13:18→22:20)
--- NOTE | 2019-05-03 19:07 | PROGRESS NOTE ---
DATE: 05/03/2019 SUBJECTIVE: The patient is alert and oriented x3. She reports that she takes her medication depending upon where she is. She says that when she is not at home she takes her valproic acid later on, like at noon, but when she is at home, she takes in the morning. I think the reason why she had seizures was due to noncompliance or confusion on taking her medications. She has not had any more episodes of seizure since admission. OBJECTIVE: Vital Signs: Temperature 97.3, heart rate 63, respiratory rate 15, blood pressure 126/69, O2 saturation 95% on room air. General: This is a [id number] 78-year-old female lying in bed, in no acute distress. Cardiovascular: S1, S2 heard. No murmurs, gallops, or rubs. Regular rate and rhythm. Respiratory: Clear bilaterally to auscultation. No work of breathing. No use of accessory muscles. Abdomen: Soft. Nontender to palpation. Bowel sounds present. No organomegaly. Extremities: No clubbing, cyanosis, or edema. Peripheral pulses present in both legs. Neurological: Patient is alert and oriented x3. Moves 4 extremities. LABORATORY DATA: White cell count 9.06, hemoglobin 10.2, hematocrit 32.3, platelets 176. Potassium 3.1, magnesium 1.3 and calcium 7.0. ASSESSMENT AND PLAN: 1. Postictal status. The patient had an episode of seizure. Now she is completely fine. Postictal status is resolved. Definitely the reason why she had a seizure is noncompliance. Actually when I talked to her today, she is supposed to take Valproic acid 3 times per day, but she said that she does not take her medications on a scheduled basis. Sometimes she takes it 2 times per day, sometimes 3 times per day, although the indication from her doctor is to take it 3 times per day. Levels of valproic acid were low at admission, and that is basically the reason why she had a seizure. At this point, we have provided valproic acid IV. We are going to check levels tomorrow. The patient has been strongly advised to be compliant with her medication and get an appointment with Dr. Andrade next week to see if we need to adjust her medications. At this point, the patient is stable. We are going to send this patient out of the intensive care unit today. 2. Hypertension. Blood pressure is under control. We will continue with the same management. 3. Hypothyroidism. Will continue with levothyroxine. 4. Chronic kidney disease stage 1. Creatinine is back to normal. Will continue to monitor. 5. Hypomagnesemia. Will replete magnesium today. 6. Disposition: Will transfer this patient out of the intensive care unit today. cc: Venkat Smith MD
[2019-05-03] MEDS: GLUCOTROL PO SCH (22:20)
[2019-05-04] MEDS: NS 1,000 ML IV SCH ×2 (02:55→06:38)
[2019-05-04] MEDS ORDERED: NORCO-7.5 PO PRN (03:32)
[2019-05-04] MEDS: ATIVAN IV PRN (05:13)
[2019-05-04] MEDS: DEPACON 250 MG in NS 50 ML IV SCH ×2 (06:38→14:37)
[2019-05-04 08:06] LABS: BASO# 0.01 X1000 (0.0-0.2); BASO% 0.2 % (0.0-0.8); EOS# 0.12 X1000 (0.0-0.7); EOS% 2.2 % (0.0-10.0); HEMATOCRIT 32.8 % (37.0-47.0); HEMOGLOBIN 10.5 g/dL (12.0-16.0); LYMPH% 31.2 % (20.5-51.1); MCH 32.1 PG (27-31); MCV 100.3 FL (81-99); MONO# 0.65 X1000 (0.11-0.59); MONO% 11.9 % (1.7-9.3); MPV 10.1 FL (7.4-10.4); NEUT# 2.97 X1000 (1.4-6.5); NEUT% 54.5 % (42.2-75.2); PLT 181 X1000 (130-400); RBC 3.27 XMIL (4.2-5.4); RDW 13.1 % (11.5-14.5); WBC 5.45 X1000 (4.8-10.8)
[2019-05-04 08:28] LABS: MAGNESIUM 1.7 mg/dL (1.5-2.7); PHOSPHORUS 4.2 mg/dL (2.7-4.5)
[2019-05-04 08:51] LABS: AGAP 12; BUN 12 mg/dL (8-22); CALCIUM 8.4 mg/dL (8.8-10.2); CHLORIDE 114 mmol/L (98-107); COSMO 290; CREATININE 0.9 mg/dL (0.5-0.9); ESTIMATED GFR > 60; GLUCOSE 96 mg/dL (70-104); POTASSIUM 4.6 mmol/L (3.5-5.1); SODIUM 146 mmol/L (136-145); TCO2 20 mmol/L (25-35)
[2019-05-04] MEDS ORDERED: VICON-C PO SCH (09:00)
[2019-05-04] MEDS ORDERED: CYMBALTA PO SCH (09:00)
[2019-05-04] MEDS: PRILOSEC PO SCH (10:37)
[2019-05-04] MEDS: SYNTHROID PO SCH (10:37)
[2019-05-04] MEDS: FOLIC ACID PO SCH (10:38)
[2019-05-04] MEDS: NEUTRA-PHOS PO SCH ×2 (10:38→14:37)
[2019-05-04] MEDS: GLUCOTROL PO SCH (10:38)
[2019-05-04 10:52] VITALS: BP 120/64
--- NOTE | 2019-05-07 14:11 | DISCHARGE SUMMARY ---
ADMISSION DATE: 05/01/2019 DISCHARGE DATE: 05/04/2019 PERTINENT STUDIES: CT head: Stable chronic ventriculomegaly without acute process. Chest x-ray with no acute process. Admission creatinine 1. Discharge creatinine 0.9. Magnesium as low as 1.3, up to 1.7 on discharge. Calcium as low as 7, up to 8.4 on discharge. Phosphorus as low as 1.7, up to 4.2 at discharge. Potassium as low as 3.1, up to 4.6 at discharge. Valproic acid level on admission approximately 40. UDS positive for benzodiazepines, which the patient was prescribed. DISCHARGE DIAGNOSES: 1. Seizure disorder. 2. Medication noncompliance. 3. Hypertension. 4. Hypothyroidism. 5. Hypomagnesemia. 6. Hypophosphatemia. 7. Hypocalcemia. 8. Hypokalemia. HOSPITAL COURSE: The patient presented with a seizure disorder and postictal state. She had a seizure at home that lasted for approximately 5 minutes. The patient is on Depakote at home, and has reportedly controlled her seizures well when she takes it as prescribed, but she frequently misses her afternoon dose. The patient's Depakote level on arrival was low at 36. The patient was given Ativan initially, as well as Keppra and Depakote on admission, largely because of confusion and combativeness on arrival. After initial combativeness, the patient was fairly stable. She was continued on just her home Depakote. She had no further seizures, and her confusion cleared. She did have several electrolyte abnormalities with potassium, magnesium, calcium, and phosphorus all being low, but these were repleted and much improved by the time of discharge. The patient likely does have some underlying dementia. Lives with her son. On discussion with him, he plans on taking a more active role in her medication to make sure she takes it as prescribed. As the patient's labs were stable and she had had no more seizures on her home dose of Depakote, she was discharged home to follow up with PCP and Neurology. DISCHARGE VITAL SIGNS: Temp 98 degrees, pulse 93, respirations 18, blood pressure 120/64, O2 saturation 98% on room air. DISCHARGE MEDICATIONS: Cymbalta 60 mg p.o. daily, fluticasone as previously prescribed, folic acid 1 mg p.o. daily, glipizide 5 mg p.o. b.i.d., omeprazole 40 mg daily, valproic acid liquid 250 mg p.o. t.i.d., Synthroid 50 mcg p.o. daily, [place] as previously prescribed, multivitamin daily. FOLLOWUP APPOINTMENT: The patient is discharged home to follow up with her PCP and Neurology. TIME SPENT: Greater than 30 minutes were spent arranging discharge and counseling the patient.
== END 2019-05-04 16:40 | disposition home or self-care (01) | DRG 101 ==
LOC: SUPCPDRO → ED 08:50 → SUATTDRO 17:36 → EDIPHOLD 17:36 → ICU 20:35 → 3N 05-03 14:27
PROVIDERS: ATTEND Internal Medicine